=== PATIENT | female | born 1980 | race Caucasian/White ===

== ENCOUNTER 2022-09-18 02:01 | Day surgery (SDC) | payer OTHER, SELFPAY ==
[2022-09-13 10:30] VITALS: BMI 42.0
--- NOTE | 2022-09-13 10:37 | PC.NURSE ---
Report to the Outpatient Waiting Room, entrance under the green pavilion located off [facility], at time 0630 on date 09/18/22. Planned Procedure Time: 0830. Time changes happen often and if your time is changed the preop area will call you the afternoon before. - You and your visitor will be asked to self-screen and do not enter if you have any COVID symptoms. - Only one visitor is requested with a max of two and NO children visitors are allowed at this time. - The patient visitor may be requested to leave or wait in car when not with patient due to distancing restrictions. - A mask is REQUIRED within the hospital. Patients may have clear liquids (water, carbonated beverages, clear teas, apple juice) until 3 hours prior to surgery with a maximum of 20 ounces. - No food from midnight until time of surgery Take the following medications with a SIP of water the morning of surgery: TYLENOL IF NEEDED, LEVOTHYROXINE, TIZANIDINE, TOPIRAMATE Medications to discontinue per physician: N/A Date to take last dose: N/A Please no make-up, nail urdu, hairspray, perfume, deodorant, or body powder the day of surgery. No jewelry (including any body piercings) or valuables the day of surgery, leave them at home. Please take a shower or bath the night before, or the morning of, surgery with an antibacterial soap. Wear comfortable, loose fitting clothing. - Jewelry must be removed prior to entering the operating room. Rings and piercings that are not removed may be cut off. - The hospital will not accept responsibility for valuables. - Please leave all valuables, including medications, at home the day of surgery. If you are going home after surgery, a licensed construction driver must drive you home. - NO public transportation without another adult if you receive anesthesia. - We recommend that an adult stay with you for 24 hours following discharge. - We also recommend that you do not drive, make important decision, drink alcoholic beverages, or take any drugs that were not prescribed by your health care provider for at least 24 hours after your discharge time. Follow any additional instructions given to you from your surgeon. If you or anyone in your household have experienced Covid symptoms in the past week, please notify your surgeon or the nurse liaison at the phone number below for possible testing. Telephone instructions given to PT - GABRIEL SMART and asked if any additional questions and then verbalized understanding. Patient advised to call surgeon office or pre surgery nurse liaison [phone] if any additional questions.
[2022-09-18 06:50] VITALS: BP 118/70; PULSE 86; RESP 16; TEMP 36.4; O2SAT 100
--- NOTE | 2022-09-18 07:14 | PM.HPGS ---
History of Present Illness History of Present Illness Consent: Risks, benefits, and alternatives have been discussed and questions answered. Patient agrees to proceed with procedure. Chief complaint: menorrhagia Narrative: Phani Proctor is a 41 year old female with irregular bleeding. Patient had no cycle for 6 months followed by 2 months of variable bleeding. Patient has had on off bleeding for most of June and July. Some days are heavy others are light. It was recommended to proceed with D&C hysteroscopy. Risks of infection, bleeding, fluid imbalance, and perforation were reviewed. Possible pathology was also reviewed. Patient questions answered and patient agrees to proceed. 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 Depression Fibromyalgia History of PCOS Hypothyroid Morbid obesity Surgical History Surgical History (Updated 09/18/22 @ 07:21 by Christine Sarabia MD) History of x4 History of gastric bypass History of tonsillectomy Hx laparoscopic cholecystectomy Hx of appendectomy Social History Social History Smoking status: Never smoker Alcohol intake: never Substance use: never Substance use type: does not use Living arrangements: with family Spiritual care concerns: No Meds Home Medications and Allergies Home Medications Medication Instructions Recorded Confirmed Type acetaminophen 500 mg tablet 1,000 mg PO QID PRN Pain 09/13/22 09/13/22 History amitriptyline 50 mg tablet 100 mg PO HS 09/13/22 09/13/22 History levothyroxine 175 mcg tablet 175 mcg PO DAILY 09/13/22 09/13/22 History propranolol 10 mg tablet 10 mg PO HS 09/13/22 09/13/22 History tizanidine 4 mg tablet 4 mg PO Q6H 09/13/22 09/13/22 History topiramate 100 mg tablet 100 mg PO BID 09/13/22 09/13/22 History tramadol 50 mg tablet 100 mg PO HS 09/13/22 09/13/22 History Allergies Allergy/AdvReac Type Severity Reaction Status Date / Time amoxicillin Allergy Intermediate NAUSEA Verified 09/13/22 10:28 aspirin Allergy Unknown Other Verified 09/13/22 10:28 codeine Allergy Unknown Hives Verified 09/13/22 10:28 erythromycin base Allergy Unknown Hives Verified 09/13/22 10:28 latex Allergy Unknown Hives Verified 09/13/22 10:28 Penicillins Allergy Unknown Hives Verified 09/13/22 10:28 NSAIDS (Non-Steroidal AdvReac Intermediate Other Verified 09/13/22 10:28 Anti-Inflamma ketorolac AdvReac Unknown NAUSEA AND Verified 09/13/22 10:28 VOMITING Exam Const: General: healthy appearing and alert Orientation/consciousness: patient oriented x3 Resp: Effort & Inspection: normal respiratory effort GI: GI Palp: Yes Soft to palpation, No Tenderness to palpation present (GI) and No Palpable mass present : External Female Exam: normal external appearance Speculum Exam - Vagina: normal appearance of the vagina and normal vaginal discharge Speculum Exam - Cervix: normal appearance of the cervix Bimanual exam- vagina & uterus: uterine size normal and consistency normal Bimanual Exam- Adnexa, other: normal adnexae and No adnexal tenderness Neuro: General: patient oriented x3 Assessment and Plan Assessment and plan (1) Menorrhagia: Code(s): N92.0 - Excessive and frequent menstruation with regular cycle Status: Acute Assessment and Plan: plan is to proceed with D&C hysteroscopy
--- NOTE | 2022-09-18 07:16 | WPDANESEPPF ---
Anes - Initial Pre Proc Eval Procedure: Operation Date: 09/18/22 08:30 Proposed Procedures p Hysteroscopy, Dilation and Curettage - Christine Sarabia MD Date/Time: 09/18/22 07:16 Surgeon: Christine Sarabia MD Pre Op Diagnosis: menorrhagia Patient Data Age: 41 Gender: F Height: 1.63 m Weight: 111.2 kg Allergies Allergy/AdvReac Type Severity Reaction Status Date / Time amoxicillin Allergy Intermediate NAUSEA Verified 09/13/22 10:28 aspirin Allergy Unknown Other Verified 09/13/22 10:28 codeine Allergy Unknown Hives Verified 09/13/22 10:28 erythromycin base Allergy Unknown Hives Verified 09/13/22 10:28 latex Allergy Unknown Hives Verified 09/13/22 10:28 Penicillins Allergy Unknown Hives Verified 09/13/22 10:28 NSAIDS (Non-Steroidal AdvReac Intermediate Other Verified 09/13/22 10:28 Anti-Inflamma ketorolac AdvReac Unknown NAUSEA AND Verified 09/13/22 10:28 VOMITING Home Medications Medication Instructions Recorded Confirmed Type acetaminophen 500 mg tablet 1,000 mg PO QID PRN Pain 09/13/22 09/13/22 History amitriptyline 50 mg tablet 100 mg PO HS 09/13/22 09/13/22 History levothyroxine 175 mcg tablet 175 mcg PO DAILY 09/13/22 09/13/22 History propranolol 10 mg tablet 10 mg PO HS 09/13/22 09/13/22 History tizanidine 4 mg tablet 4 mg PO Q6H 09/13/22 09/13/22 History topiramate 100 mg tablet 100 mg PO BID 09/13/22 09/13/22 History tramadol 50 mg tablet 100 mg PO HS 09/13/22 09/13/22 History Patient hx anesthesia problems: none Family hx anesthesia problems: none Results Review: All pre-operative results and documents have been reviewed as part of the pre-operative evaluation. [facility] Past Medical History Medical History (Updated 09/18/22 @ 07:16 by Ad Hanks MD) Morbid obesity Surgical History Surgical History (Updated 09/18/22 @ 07:16 by Ad Hanks MD) History of gastric bypass Social History Social History Smoking status: Never smoker Alcohol intake: never Substance use: never Substance use type: does not use Living arrangements: with family Spiritual care concerns: No Anes - Eval Final PreProcedure Day of Procedure 09/18/22 07:16 Patient weight: morbidly obese Heart: regular rate and rhythm Lungs: clear to auscultation Airway: Mallampati scale class II Neurological: alert and oriented Last oral intake: >/= 8 hours ASA classification: III Emergent: no Anesthetic plan: proceed Anesthesia type and monitoring: general GIVS and standard monitoring Results Review: All pre-operative results and documents have been reviewed as part of the pre-operative evaluation. Informed Consent: The patient's anesthetic plan and its attendant risks and benefits were discussed with the patient/family/POA. Questions were solicited and answers provided to the satisfaction of the patient/family/POA.
--- NOTE | 2022-09-18 07:22 | WPDHPUPDATE1 ---
History and Physical Update Update Date/Time: 09/18/22 07:22 History and Physical has been reviewed, including an updated exam of the patient. There are NO changes in the patient's condition. Risks, benefits, and alternatives have been discussed and questions answered. Patient agrees to proceed with procedure.
[2022-09-18] MEDS: LACTATED RINGERS 1,000 ML 30 ML IV CONT (07:30)
[2022-09-18] MEDS: ACETAMINOPHEN 500 MG TABLET 1000 MG PO (07:35)
[2022-09-18 07:44] LABS: Hematocrit 28.8 % (37.0-47.0); Hemoglobin 8.5 g/dL (12.0-15.0)
[2022-09-18] MEDS: LIDOCAINE HCL 1% PF 30 ML VIAL 10 ML INFILTRATE (08:39)
[2022-09-18 08:47] VITALS: BP 121/83; PULSE 81; RESP 14; O2SAT 93
[2022-09-18] MEDS: ONDANSETRON INJ 4 MG/2 ML VIAL IV PUSH (08:52)
--- NOTE | 2022-09-18 08:52 | W.PM.PROC2 ---
Procedure Note - Detailed Date of Procedure 09/18/22 Pre-op Diagnosis menorrhagia Post-op Diagnosis Same Procedure Performed D&C hysteroscopy Surgeon Christine Sarabia MD Anesthesia MAC and Local Findings uterus sounds to 9cm and appears grossly normal Description of Procedure The patient is taken to the operating room and placed under anesthesia in the dorsal position. She was prepped and draped in the usual sterile fashion. [place] speculum was placed in the vagina and the cervix grasped on the anterior lip with a tenaculum. The cervix is injected in each quadrant with 1% lidocaine. The uterus is sounded to 9cm. The Aveeta hysteroscope was placed with the above-stated findings. The hysteroscope was removed and the medium sharp curette used to curette the endometrium and until a good uterine cry noted in all areas. All instruments were then removed. Patient is awakened from anesthesia and taken to recovery in stable condition. Sponge, needle, and instrument counts are correct per the OR staff. Estimated Blood Loss 5 Drains No Packing No Pathology Yes ( Endometrial curetting) Complications No immediate complications Condition Stable Disposition PACU
[2022-09-18 09:15] VITALS: BP 125/84; PULSE 61; RESP 14; O2SAT 98
[2022-09-18 09:45] VITALS: BP 132/85; PULSE 59; RESP 14
== END 2022-09-18 09:58 | disposition home or self-care (01) ==
PROVIDERS: Anesthesiology; PCP Family Medicine; Visit Provider Obstetrics & Gynecology Gynecology
PROC: 0U5B8ZZ Destruction of Endometrium, Via Natural or Artificial Opening Endoscopic (ICD-10-PCS; CPT 58563; principal; 2022-09-18 08:30)
DX: N92.0 Excessive and frequent menstruation with regular cycle (principal); F32.A Depression, unspecified; M79.7 Fibromyalgia; E03.9 Hypothyroidism, unspecified; Z98.84 Bariatric surgery status; E66.01 Morbid (severe) obesity due to excess calories; Z68.41 Body mass index [BMI] 40.0-44.9, adult
CPT/HCPCS: 58558; 36415; 85014; 85018; 88305; A9270; J2250; J2405; J2704; J3010; J7120